=== PATIENT | female | born 1990 | race Caucasian/White ===

== ENCOUNTER 2017-03-06 19:32 | Emergency (ER) | payer OTHER ==
[~2017-03-06] VITALS: Ht 170.2 cm; Wt 140.6 kg
[~2017-03-06 19:32] MED LIST: B COMPLEX1 EACH PO; B-1100 MG PO; BIOTIN5000 MCG PO; CEPHALEXIN500 MG PO; DASETTA1 EAC1 PO; FOLIC ACID1 MG PO; HYDROCODON-ACE1 EA10 PO; INVEGA9 MG PO; KEFLEX500 MG PO; LAMOTRIGINE100 MG PO; LAMOTRIGINE200 MG PO; LATUDA80 MG PO; LITHIUM CARBON300 M2 PO; METFORMIN HCL500 MG PO; NAPROXEN500 MG PO; OMEPRAZOLE20 MG PO; PEPCID40 MG PO; QUETIAPINE FUM400 M1 PO; RANITIDINE HCL150 MG PO; SEROQUEL400 MG PO; ULTRAM50 MG PO; VITAMIN D-32000 UNIT PO; ZANTAC150 MG PO; ZOLPIDEM TARTRA10 MG PO
[2017-03-07] MEDS ORDERED: LITHIUM CARBON300 MG PO (06:20)
== END 2017-03-06 23:08 | disposition home or self-care (01) ==
LOC: ED 19:32
DX: Z00.00 Encounter for general adult medical examination without abnormal findings (principal); F31.81 Bipolar II disorder; Z90.49 Acquired absence of other specified parts of digestive tract; Z88.2 Allergy status to sulfonamides; Z79.899 Other long term (current) drug therapy
CPT/HCPCS: 36415; 80053; 80176; 81001; 84443; 84703; 85025; 99283; G0480

== ENCOUNTER 2017-03-07 05:17 | Emergency (ER) | payer OTHER ==
[~2017-03-07] VITALS: Ht 170.2 cm; Wt 131.5 kg
[2017-03-07] MEDS ORDERED: LITHIUM CARBON300 MG PO (06:20)
== END 2017-03-08 11:20 | disposition short-term general hospital (02) ==
LOC: ED 05:17
DX: F30.2 Manic episode, severe with psychotic symptoms (principal); Z87.891 Personal history of nicotine dependence; Z90.89 Acquired absence of other organs; Z90.49 Acquired absence of other specified parts of digestive tract; Z88.2 Allergy status to sulfonamides; Z79.899 Other long term (current) drug therapy
CPT/HCPCS: 36415; 80053; 80176; 80178; 81001; 84443; 84703; 85025; 99285; G0480